=== PATIENT | female | born 1990 | race Caucasian/White ===

== ENCOUNTER 2024-05-04 17:55 | Emergency (ER) | payer BC ==
[~2024-05-04] VITALS: Ht 162.6 cm; Wt 80.9 kg
[2024-05-04 18:04] VITALS: BP 148/106
[2024-05-04] MEDS ORDERED: Sulfamethoxazole/Trimethoprim 800-160 MG TAB PO ONE (18:15)
[2024-05-04] MEDS ORDERED: oxyCODONE/Acetaminophen 5-325 MG TAB PO ONE (18:15)
[2024-05-04] MEDS ORDERED: Home oxyCODONE/Acetaminophen 5/325 MG #4 TAB/PACK PO ONE (18:30)
[2024-05-04] MEDS ORDERED: BACTRIM DS TAB1 EACH PO (18:44)
[2024-05-04] MEDS ORDERED: ENDOCET 5-3251 EACH PO (18:44)
== END 2024-05-04 18:51 | disposition home or self-care (01) ==
LOC: ED 17:55
DX: L73.2 Hidradenitis suppurativa (principal)

== ENCOUNTER 2024-05-10 06:08 | Emergency (ER) | payer BC ==
[~2024-05-10] VITALS: Wt 80.9 kg
[~2024-05-10 06:08] MED LIST: BACTRIM DS TAB1 EACH PO; ENDOCET 5-3251 EACH PO
[2024-05-10] MEDS ORDERED: predniSONE 10 MG TAB PO ONE (06:30)
[2024-05-10] MEDS ORDERED: Famotidine 20 MG TAB PO ONE (06:30)
[2024-05-10] MEDS ORDERED: diphenhydrAMINE 25 MG CAP PO ONE (06:30)
[2024-05-10] MEDS ORDERED: PREDNISONE20 M1 PO (06:30)
[2024-05-10] MEDS ORDERED: CLINDAMYCIN 300MG PO (06:30)
[2024-05-10] MEDS ORDERED: EPIPEN 2-PAK1 MG/ML MR (06:37)
[2024-05-10 06:50] VITALS: BP 115/78
== END 2024-05-10 06:50 | disposition home or self-care (01) ==
LOC: ED 06:08
DX: L50.9 Urticaria, unspecified (principal); Z88.0 Allergy status to penicillin; Z88.2 Allergy status to sulfonamides
CPT/HCPCS: J7512